=== PATIENT | male | born 1970 | race Caucasian/White ===

== ENCOUNTER 2020-02-11 10:40 | Emergency (ER) | payer OTHER ==
[~2020-02-11] VITALS: Ht 175.2 cm; Wt 90.7 kg
[~2020-02-11 10:40] MED LIST: AMOXICILLIN500 MG PO; MORPHINE SULFAT15 M1 PO; OXYCODONE HCL5 MG PO; TRIAMTERENE-HCTZ 37. PO
[2020-02-11] MEDS ORDERED: IBUPROFEN600 MG PO (14:37)
[2020-02-11] MEDS ORDERED: ROBAXIN-750750 MG PO (14:37)
== END 2020-02-11 14:34 | disposition home or self-care (01) ==
LOC: ED 10:40
DX: S33.5XXA Sprain of ligaments of lumbar spine, initial encounter (principal); Z88.8 Allergy status to other drugs, medicaments and biological substances; Z79.899 Other long term (current) drug therapy; X50.0XXA Overexertion from strenuous movement or load, initial encounter; Y93.89 Activity, other specified; Y92.89 Other specified places as the place of occurrence of the external cause; Y99.8 Other external cause status

== ENCOUNTER → 2020-07-26 | Outpatient (CLI) | payer OTHER ==
[~2020-07-26] MED LIST changes: +IBUPROFEN600 MG PO; +ROBAXIN-750750 MG PO
== END | disposition home or self-care (01) ==
LOC: COVID19 09:16
PROVIDERS: ATTEND Student in an Organized Health Care Education/Training Program
DX: U07.1 COVID-19 (principal)

== ENCOUNTER 2021-07-29 03:31 | Emergency (ER) | payer OTHER ==
[~2021-07-29] VITALS: Ht 175.2 cm; Wt 90.7 kg
== END 2021-07-29 05:20 | disposition home or self-care (01) ==
LOC: ED 03:31
DX: T18.128A Food in esophagus causing other injury, initial encounter (principal); Y92.89 Other specified places as the place of occurrence of the external cause

== ENCOUNTER → 2021-08-31 | Outpatient (CLI) | payer OTHER | END | disposition home or self-care (01) | LOC: COVID19 15:51 | PROVIDERS: ATTEND Internal Medicine | DX: U07.1 COVID-19 (principal) ==

== ENCOUNTER 2022-04-15 10:52 | Emergency (ER) | payer OTHER ==
[~2022-04-15] VITALS: Wt 90.7 kg
[2022-04-15] MEDS ORDERED: CYCLOBENZAPRINE10 MG PO (15:12)
[2022-04-15] MEDS ORDERED: PREDNISONE50 MG PO (15:12)
[2022-04-15] MEDS ORDERED: PERCOCET 5-3251 EACH PO (15:12)
== END 2022-04-15 16:30 | disposition home or self-care (01) ==
LOC: ED 10:52
DX: S39.012A Strain of muscle, fascia and tendon of lower back, initial encounter (principal); X50.9XXA Other and unspecified overexertion or strenuous movements or postures, initial encounter; Y93.89 Activity, other specified; Y92.89 Other specified places as the place of occurrence of the external cause; Y99.8 Other external cause status

== ENCOUNTER → 2024-07-12 | Outpatient (CLI) | payer OTHER ==
[~2024-07-12] MED LIST changes: +CYCLOBENZAPRINE10 MG PO; +PERCOCET 5-3251 EACH PO; +PREDNISONE50 MG PO
== END | disposition home or self-care (01) ==
LOC: RAD 10:16
PROVIDERS: ATTEND Physician Assistant
DX: M77.31 Calcaneal spur, right foot (principal); M79.671 Pain in right foot

== ENCOUNTER 2024-08-23 18:34 | Emergency (ER) | payer OTHER ==
[~2024-08-23] VITALS: Ht 175.2 cm; Wt 94.3 kg
[2024-08-23] MEDS ORDERED: methylPREDNISolone sod succ 125 MG VIAL IM ONE (18:50)
[2024-08-23] MEDS ORDERED: METHOCARBAMOL 500 MG TAB PO ONE (18:50)
[2024-08-23] MEDS ORDERED: METHOCARBAMOL500 M1 PO (18:50)
[2024-08-23] MEDS ORDERED: PREDNISONE50 MG PO (18:50)
== END 2024-08-23 19:03 | disposition home or self-care (01) ==
LOC: ED 18:34
DX: M54.50 Low back pain, unspecified (principal); Z98.890 Other specified postprocedural states